=== PATIENT | female | born 1975 | race Caucasian/White ===

== ENCOUNTER 2017-11-20 07:12 | Emergency (ER) | payer MEDICAID ==
[~2017-11-20] VITALS: Ht 162.6 cm; Wt 93.2 kg
[~2017-11-20 07:12] MED LIST: ALBU8.5H4 INH; BUPR-94 PO; CEPH500C5 PO; DESV100T PO; HYDR-3972 PO; IBUP-1984 PO; METH-603 PO; OMEP20CA10 PO; OXYB10TA PO; POLY119P2 PO; PROP10TA10 PO; SENN8.6C6 PO; SUMA100T PO; TIZA4CAP PO; TOPI200T16 PO; TRAZ-219 PO
[2017-11-20] MEDS ORDERED: ibuprofen tablet 400 MG TABLET PO ONE (08:05)
[2017-11-20] MEDS ORDERED: acetaminophen 325mg tablet PO ONE (08:05)
[2017-11-20 08:18] LABS: URINE HCG NEGATIVE (NEG)
[2017-11-20 08:22] LABS: CLARITY,URINE SLIGHTLY CLOUDY (Clear); COLOR,URINE YELLOW (Yellow); GLUCOSE, URINE NEGATIVE (Neg); KETONES,URINE NEGATIVE (Neg); LEUKOCYTE ESTERASE ,URINE TRACE (Neg); NITRITES, URINE NEGATIVE (Neg); OCCULT BLOOD,URINE SMALL (Neg); PROTEIN,URINE NEGATIVE (Neg); UROBILINOGEN,URINE 0.2 E.U/dL (0.2-1.0)
[2017-11-20 08:23] LABS: UA COLLECTION TYPE CLN CATCH MIDSTREAM
[2017-11-20 08:42] LABS: RBC,URINE 0-2 /HPF (0-2)
[2017-11-20 08:43] LABS: BACTERIA,URINE FEW /HPF (Neg); MUCUS STRANDS FEW /LPF (Neg); SQUAMOUS EPITHELIAL CELL,UR FEW /LPF (FEW)
[2017-11-20] MEDS ORDERED: ondansetron 4mg rapidly disintigrating tab PO ONE (08:45)
[2017-11-20] MEDS ORDERED: triamcinolone acetonide 40mg/ml inj IM ONE (09:00)
[2017-11-20 09:20] VITALS: BP 100/66
== END 2017-11-20 09:33 | disposition home or self-care (01) ==
LOC: ER 07:12
DX: M54.5 Low back pain (principal); R11.0 Nausea; K21.9 Gastro-esophageal reflux disease without esophagitis; G89.29 Other chronic pain; F32.9 Major depressive disorder, single episode, unspecified; Z88.2 Allergy status to sulfonamides; Z87.442 Personal history of urinary calculi; Z87.440 Personal history of urinary (tract) infections; Z90.49 Acquired absence of other specified parts of digestive tract; Z90.710 Acquired absence of both cervix and uterus; Z98.51 Tubal ligation status; Z79.899 Other long term (current) drug therapy; Z88.5 Allergy status to narcotic agent; Z88.0 Allergy status to penicillin; Z88.8 Allergy status to other drugs, medicaments and biological substances; Z88.6 Allergy status to analgesic agent
CPT/HCPCS: 81001; 81025; 87088; 96372; 99284; J3301

== ENCOUNTER 2017-12-03 12:55 | Emergency (ER) | payer MEDICAID ==
[~2017-12-03] VITALS: Ht 162.6 cm; Wt 93.8 kg
[2017-12-03 13:36] LABS: BASOPHILS % (AUTO) 0.5 % (0-1); EOSINOPHILS # (AUTO) 0.3 X10'3 (0-0.9); EOSINOPHILS % (AUTO) 3.7 % (0-6); HEMATOCRIT 37.4 % (35.0-45.0); HEMOGLOBIN 12.6 g/dl (12.0-16.0); LYMPHOCYTES # (AUTO) 2.5 X10'3 (1.1-4.8); LYMPHOCYTES % (AUTO) 28.5 % (21-51); MEAN CORPUSCULAR HEMOGLOBIN 29.5 PG (27.0-31.0); MEAN CORPUSCULAR HGB CONC 33.5 % (33.0-36.5); MEAN CORPUSCULAR VOLUME 87.9 FL (78-98); MEAN PLATELET VOLUME 8.8 FL (7.4-10.4); MONOCYTES # (AUTO) 0.5 X10'3 (0-0.9); MONOCYTES % (AUTO) 6.1 % (2-12); NEUTROPHILS # (AUTO) 5.3 X10'3 (1.8-7.7); NEUTROPHILS % (AUTO) 61.2 % (42-75); PLATELET COUNT 298 X10'3 (140-440); RED BLOOD COUNT 4.25 X10'6 (4.20-5.60); RED CELL DISTRIBUTION WIDTH 13.9 % (11.5-14.5); WHITE BLOOD COUNT 8.7 X10'3 (4.5-11.0)
[2017-12-03 13:52] LABS: ALANINE AMINOTRANSFERASE 28 U/L (12-78); ALBUMIN 3.6 G/DL (3.4-5.0); ALBUMIN/GLOBULIN RATIO 0.8 (1.1-1.5); ALKALINE PHOSPHATASE 117 IU/L (46-116); ANION GAP 11 (8-16); ASPARTATE AMINO TRANSFERASE 13 U/L (10-37); BILIRUBIN,TOTAL 0.2 MG/DL (0.1-1.0); BLOOD UREA NITROGEN 10 MG/DL (7-18); CALCIUM 9.9 MG/DL (8.5-10.1); CHLORIDE 103 MMOL/L (99-107); CREATININE 0.83 MG/DL (0.40-0.90); GLUCOSE 104 MG/DL (70-104); POTASSIUM 3.5 MMOL/L (3.5-5.1); SODIUM 140 MMOL/L (135-145); TOTAL CARBON DIOXIDE 25.7 MMOL/L (24-32); eGFR 75 ML/MIN
[2017-12-03] MEDS ORDERED: ondansetron/PF 4mg/2ml inj IV ONE (14:05)
[2017-12-03] MEDS ORDERED: morphine 4 MG/ML inj SYRINge IV PRN (14:05)
[2017-12-03] MEDS ORDERED: normal saline 1000ML IV soln IVB ONE (14:05)
[2017-12-03] MEDS ORDERED: HYDR-569 PO (15:15)
[2017-12-03] MEDS ORDERED: FLO0.4C PO (15:15)
[2017-12-03] MEDS ORDERED: ONDA4TAB9 SL (15:15)
[2017-12-03] MEDS ORDERED: tamsulosin 0.4mg capsule PO ONE (15:15)
[2017-12-03 15:21] VITALS: BP 103/58
== END 2017-12-03 15:26 | disposition home or self-care (01) ==
LOC: ER 12:56
DX: N20.0 Calculus of kidney (principal); N23 Unspecified renal colic; R10.32 Left lower quadrant pain; K21.9 Gastro-esophageal reflux disease without esophagitis; G89.29 Other chronic pain; Z87.442 Personal history of urinary calculi; Z90.49 Acquired absence of other specified parts of digestive tract; Z90.710 Acquired absence of both cervix and uterus; Z98.51 Tubal ligation status; Z88.6 Allergy status to analgesic agent; Z88.0 Allergy status to penicillin; Z88.2 Allergy status to sulfonamides; Z88.5 Allergy status to narcotic agent; Z79.899 Other long term (current) drug therapy
CPT/HCPCS: 36415; 76775; 80053; 85025; 96374; 96375; 99285; J2270; J2405; J7030

== ENCOUNTER 2018-01-26 13:01 | Emergency (ER) | payer MEDICAID ==
[~2018-01-26] VITALS: Ht 162.6 cm; Wt 77.3 kg
[~2018-01-26 13:01] MED LIST changes: -CEPH500C5 PO; +HYDR-4383 PO
[2018-01-26 13:36] LABS: BASOPHILS % (AUTO) 0.2 % (0-1); EOSINOPHILS # (AUTO) 0.3 X10'3 (0-0.9); EOSINOPHILS % (AUTO) 2.7 % (0-6); HEMATOCRIT 36.8 % (35.0-45.0); HEMOGLOBIN 12.2 g/dl (12.0-16.0); LYMPHOCYTES # (AUTO) 2.2 X10'3 (1.1-4.8); MEAN CORPUSCULAR HEMOGLOBIN 29.4 PG (27.0-31.0); MEAN CORPUSCULAR HGB CONC 33.2 % (33.0-36.5); MEAN CORPUSCULAR VOLUME 88.4 FL (78-98); MEAN PLATELET VOLUME 8.4 FL (7.4-10.4); MONOCYTES # (AUTO) 0.7 X10'3 (0-0.9); NEUTROPHILS # (AUTO) 9.1 X10'3 (1.8-7.7); NEUTROPHILS % (AUTO) 73.1 % (42-75); PLATELET COUNT 302 X10'3 (140-440); RED BLOOD COUNT 4.16 X10'6 (4.20-5.60); RED CELL DISTRIBUTION WIDTH 13.7 % (11.5-14.5); WHITE BLOOD COUNT 12.4 X10'3 (4.5-11.0)
[2018-01-26 13:46] LABS: PROTHROMBIN TIME 10.5 SECONDS (9.0-12.0)
[2018-01-26 13:49] LABS: ALANINE AMINOTRANSFERASE 95 U/L (12-78); ALBUMIN 3.3 G/DL (3.4-5.0); ALBUMIN/GLOBULIN RATIO 0.7 (1.1-1.5); ALKALINE PHOSPHATASE 147 IU/L (46-116); ANION GAP 10 (8-16); ASPARTATE AMINO TRANSFERASE 67 U/L (10-37); BILIRUBIN,TOTAL 0.4 MG/DL (0.1-1.0); BLOOD UREA NITROGEN 11 MG/DL (7-18); BUN/CREATININE RATIO 16.4 (6.6-38.0); CALCIUM 8.6 MG/DL (8.5-10.1); CHLORIDE 103 MMOL/L (99-107); CREATININE 0.67 MG/DL (0.40-0.90); GLUCOSE 93 MG/DL (70-104); LIPASE 69 U/L (73-393); POTASSIUM 3.1 MMOL/L (3.5-5.1); SODIUM 137 MMOL/L (135-145); TOTAL CARBON DIOXIDE 24.5 MMOL/L (24-32); TOTAL PROTEIN 8.2 G/DL (6.4-8.2); eGFR > 90 ML/MIN
[2018-01-26] MEDS ORDERED: dicyclomine 10 MG capsule PO ONE (15:00)
[2018-01-26] MEDS ORDERED: METR500T PO (15:06)
[2018-01-26 15:37] VITALS: BP 110/74
== END 2018-01-26 15:41 | disposition home or self-care (01) ==
LOC: ER 13:04
DX: K52.9 Noninfective gastroenteritis and colitis, unspecified (principal); K21.9 Gastro-esophageal reflux disease without esophagitis; G89.29 Other chronic pain; M54.9 Dorsalgia, unspecified; Z90.49 Acquired absence of other specified parts of digestive tract; Z90.710 Acquired absence of both cervix and uterus; Z98.51 Tubal ligation status; Z88.6 Allergy status to analgesic agent; Z88.0 Allergy status to penicillin; Z88.2 Allergy status to sulfonamides; Z88.8 Allergy status to other drugs, medicaments and biological substances
CPT/HCPCS: 36415; 74176; 80053; 83690; 85025; 85610; 99285

== ENCOUNTER 2018-01-28 07:52 | Emergency (ER) | payer MEDICAID ==
[~2018-01-28] VITALS: Ht 162.6 cm; Wt 65.0 kg
[~2018-01-28 07:52] MED LIST changes: +METR500T PO
[2018-01-28 08:53] LABS: BASOPHILS % (AUTO) 0.3 % (0-1); EOSINOPHILS # (AUTO) 0.3 X10'3 (0-0.9); EOSINOPHILS % (AUTO) 2.6 % (0-6); HEMATOCRIT 36.5 % (35.0-45.0); LYMPHOCYTES % (AUTO) 8.6 % (21-51); MEAN CORPUSCULAR VOLUME 87.8 FL (78-98); MEAN PLATELET VOLUME 9.1 FL (7.4-10.4); MONOCYTES # (AUTO) 0.6 X10'3 (0-0.9); MONOCYTES % (AUTO) 4.7 % (2-12); NEUTROPHILS # (AUTO) 9.9 X10'3 (1.8-7.7); NEUTROPHILS % (AUTO) 83.8 % (42-75); PLATELET COUNT 289 X10'3 (140-440); RED BLOOD COUNT 4.15 X10'6 (4.20-5.60); RED CELL DISTRIBUTION WIDTH 13.9 % (11.5-14.5); WHITE BLOOD COUNT 11.9 X10'3 (4.5-11.0)
[2018-01-28 09:05] LABS: PROTHROMBIN TIME 10.2 SECONDS (9.0-12.0)
[2018-01-28 09:06] LABS: ALANINE AMINOTRANSFERASE 62 U/L (12-78); ALBUMIN 3.1 G/DL (3.4-5.0); ALBUMIN/GLOBULIN RATIO 0.6 (1.1-1.5); ALKALINE PHOSPHATASE 132 IU/L (46-116); ANION GAP 9 (8-16); ASPARTATE AMINO TRANSFERASE 32 U/L (10-37); BILIRUBIN,TOTAL 0.3 MG/DL (0.1-1.0); BLOOD UREA NITROGEN 14 MG/DL (7-18); BUN/CREATININE RATIO 19.2 (6.6-38.0); CALCIUM 9.3 MG/DL (8.5-10.1); CHLORIDE 107 MMOL/L (99-107); CREATININE 0.73 MG/DL (0.40-0.90); GLUCOSE 143 MG/DL (70-104); LIPASE 85 U/L (73-393); POTASSIUM 3.4 MMOL/L (3.5-5.1); SODIUM 139 MMOL/L (135-145); TOTAL CARBON DIOXIDE 23.4 MMOL/L (24-32); TOTAL PROTEIN 7.9 G/DL (6.4-8.2); eGFR 87 ML/MIN
[2018-01-28] MEDS ORDERED: ondansetron/PF 4mg/2ml inj IV ONE (09:15)
[2018-01-28] MEDS ORDERED: morphine 4 MG/ML inj SYRINge IV ONE (09:15)
[2018-01-28] MEDS ORDERED: CIPR-259 PO (10:14)
[2018-01-28 10:33] LABS: CLARITY,URINE CLOUDY (Clear); COLOR,URINE YELLOW (Yellow); GLUCOSE, URINE NEGATIVE (Neg); KETONES,URINE NEGATIVE (Neg); LEUKOCYTE ESTERASE ,URINE NEGATIVE (Neg); NITRITES, URINE NEGATIVE (Neg); OCCULT BLOOD,URINE TRACE-INTACT (Neg); PH,URINE 7.5 (4.8-8.0); PROTEIN,URINE NEGATIVE (Neg); UROBILINOGEN,URINE 0.2 E.U/dL (0.2-1.0)
[2018-01-28 10:34] LABS: UA COLLECTION TYPE CLN CATCH MIDSTREAM
[2018-01-28 10:41] LABS: AMORPHOUS PHOSPHATES 3+; BACTERIA,URINE NONE SEEN /HPF (Neg); SQUAMOUS EPITHELIAL CELL,UR FEW /LPF (FEW); WBC,URINE 0-4 /HPF (0-4)
[2018-01-28 11:10] VITALS: BP 114/88
[2018-01-28 11:27] LABS: URINE HCG NEGATIVE (NEG)
== END 2018-01-28 11:20 | disposition home or self-care (01) ==
LOC: ER 07:52
DX: K52.9 Noninfective gastroenteritis and colitis, unspecified (principal); K21.9 Gastro-esophageal reflux disease without esophagitis; G89.29 Other chronic pain; Z90.49 Acquired absence of other specified parts of digestive tract; Z90.710 Acquired absence of both cervix and uterus; Z88.6 Allergy status to analgesic agent; Z88.0 Allergy status to penicillin; Z88.5 Allergy status to narcotic agent; Z88.2 Allergy status to sulfonamides; Z88.8 Allergy status to other drugs, medicaments and biological substances; Z79.2 Long term (current) use of antibiotics; Z79.899 Other long term (current) drug therapy
CPT/HCPCS: 36415; 80053; 81001; 81025; 83690; 85025; 85610; 96374; 96375; 99284; J2270; J2405

== ENCOUNTER 2018-06-22 13:51 | Emergency (ER) | payer MEDICAID ==
[~2018-06-22] VITALS: Ht 160 cm; Wt 84.1 kg
[~2018-06-22 13:51] MED LIST changes: +ARIP2TAB37 PO; -HYDR-3972 PO; -HYDR-4383 PO; +LEVO75TA7 PO; +LINE600T32 PO; -METR500T PO
[2018-06-22 13:56] VITALS: BP 120/74
[2018-06-22] MEDS ORDERED: orphenadrine citrate 60mg/2ml inj. IM ONE (14:30)
[2018-06-22] MEDS ORDERED: aspirin 325mg tablet PO ONE (14:30)
[2018-06-22] MEDS ORDERED: acetaminophen 325mg tablet PO ONE (14:30)
[2018-06-22] MEDS ORDERED: famotidine 20mg tablet PO ONE (14:30)
[2018-06-22] MEDS ORDERED: pantoprazole 40mg Tablet.DR PO ONE (14:35)
[2018-06-22] MEDS ORDERED: LIDOcaine 5% patch TP ONE (14:35)
[2018-06-22 14:45] LABS: CLARITY,URINE CLEAR (Clear); COLOR,URINE YELLOW (Yellow); GLUCOSE, URINE NEGATIVE (Neg); KETONES,URINE NEGATIVE (Neg); LEUKOCYTE ESTERASE ,URINE TRACE (Neg); NITRITES, URINE NEGATIVE (Neg); OCCULT BLOOD,URINE MODERATE (Neg); PROTEIN,URINE NEGATIVE (Neg)
[2018-06-22] MEDS ORDERED: cyclobenzaprine 10mg tablet PO ONE (14:45)
[2018-06-22 14:46] LABS: UA COLLECTION TYPE CLN CATCH MIDSTREAM
[2018-06-22 14:53] LABS: MUCUS STRANDS MODERATE /LPF (Neg); SQUAMOUS EPITHELIAL CELL,UR MODERATE /LPF (FEW)
[2018-06-22 14:54] LABS: RBC,URINE 20-50 /HPF (0-2)
[2018-06-22 14:55] LABS: BACTERIA,URINE NONE SEEN /HPF (Neg)
--- NOTE | 2018-06-22 15:42 | NUR ---
PT TO CT
[2018-06-22 15:51] LABS: CLARITY,URINE SLIGHTLY CLOUDY (Clear); COLOR,URINE YELLOW (Yellow); GLUCOSE, URINE NEGATIVE (Neg); KETONES,URINE NEGATIVE (Neg); LEUKOCYTE ESTERASE ,URINE NEGATIVE (Neg); NITRITES, URINE NEGATIVE (Neg); OCCULT BLOOD,URINE MODERATE (Neg); PROTEIN,URINE NEGATIVE (Neg); UA COLLECTION TYPE STRAIGHT CATH
[2018-06-22 15:59] LABS: MUCUS STRANDS MANY /LPF (Neg); SQUAMOUS EPITHELIAL CELL,UR MANY /LPF (FEW)
[2018-06-22 16:00] LABS: TRANSITIONAL EPI CELLS,URINE FEW /HPF
[2018-06-22 16:01] LABS: BACTERIA,URINE NONE SEEN /HPF (Neg)
[2018-06-22] MEDS ORDERED: PANT20TA3 PO (16:05)
[2018-06-22] MEDS ORDERED: ACET-2615 PO (16:05)
[2018-06-22] MEDS ORDERED: NITR100C6 PO (16:05)
[2018-06-22] MEDS ORDERED: LIDO700A32 TOP (16:05)
[2018-06-22] MEDS ORDERED: CYCL-1 PO (16:05)
== END 2018-06-22 16:17 | disposition home or self-care (01) ==
LOC: ER 13:51
DX: M54.5 Low back pain (principal); K21.9 Gastro-esophageal reflux disease without esophagitis; G89.29 Other chronic pain; Z90.49 Acquired absence of other specified parts of digestive tract; Z90.710 Acquired absence of both cervix and uterus; Z98.51 Tubal ligation status; Z88.0 Allergy status to penicillin; Z88.2 Allergy status to sulfonamides; Z88.6 Allergy status to analgesic agent; Z88.5 Allergy status to narcotic agent; Z88.8 Allergy status to other drugs, medicaments and biological substances; Z79.899 Other long term (current) drug therapy
CPT/HCPCS: 71045; 74176; 81001; 87088; 99284

== ENCOUNTER 2019-07-17 12:54 | Emergency (ER) | payer MEDICAID ==
[~2019-07-17] VITALS: Ht 162.6 cm; Wt 79.0 kg
[~2019-07-17 12:54] MED LIST changes: +CYCL-1 PO; +LIDO700A32 TOP; +LINE600T14 PO; -LINE600T32 PO; +NITR100C6 PO; -OMEP20CA10 PO; +OMEP20CA15 PO; +ONDA4TAB6 PO; -OXYB10TA PO; +OXYB10TA30 PO; +PANT20TA3 PO; -TRAZ-219 PO; +TRAZ-256 PO
[2019-07-17 12:58] VITALS: BP 150/81
--- NOTE | 2019-07-17 13:14 | NUR ---
PT HAS BEEN EVALUATED BY DR TAVARES
[2019-07-17] MEDS ORDERED: acetaminophen 325mg tablet PO ONE (13:15)
== END 2019-07-17 14:08 | disposition home or self-care (01) ==
LOC: ER 12:55
DX: J06.9 Acute upper respiratory infection, unspecified (principal); Z20.828 Contact with and (suspected) exposure to other viral communicable diseases; K21.9 Gastro-esophageal reflux disease without esophagitis; G89.29 Other chronic pain; F32.9 Major depressive disorder, single episode, unspecified; Z90.89 Acquired absence of other organs; Z90.49 Acquired absence of other specified parts of digestive tract; Z90.710 Acquired absence of both cervix and uterus; Z98.890 Other specified postprocedural states; Z72.89 Other problems related to lifestyle; Z88.0 Allergy status to penicillin; Z88.2 Allergy status to sulfonamides; Z88.5 Allergy status to narcotic agent; Z88.8 Allergy status to other drugs, medicaments and biological substances; Z79.899 Other long term (current) drug therapy
CPT/HCPCS: 36415; 71045; 99284; C9803; U0003; 99283

== ENCOUNTER 2019-09-03 09:04 | Day surgery (SDC) | payer MEDICAID ==
[2019-08-31 14:41] LABS: BASOPHILS # (AUTO) 0.1 X10'3 (0-0.2); BASOPHILS % (AUTO) 0.9 % (0-1); EOSINOPHILS # (AUTO) 0.2 X10'3 (0-0.9); LYMPHOCYTES # (AUTO) 2.1 X10'3 (1.1-4.8); LYMPHOCYTES % (AUTO) 31.4 % (21-51); MEAN CORPUSCULAR HEMOGLOBIN 28.3 PG (27.0-31.0); MEAN CORPUSCULAR HGB CONC 32.6 g/dL (33.0-36.5); MEAN CORPUSCULAR VOLUME 86.9 FL (78-98); MONOCYTES # (AUTO) 0.6 X10'3 (0-0.9); MONOCYTES % (AUTO) 8.9 % (2-12); NEUTROPHILS # (AUTO) 3.7 X10'3 (1.8-7.7); NEUTROPHILS % (AUTO) 55.8 % (42-75); PRE OP HEMATOCRIT 35.9 % (35.0-45.0); PRE OP HEMOGLOBIN 11.7 g/dL (12.0-16.0); PRE OP PLATELET COUNT 272 X10'3 (140-440); RED BLOOD COUNT 4.13 X10'6 (4.20-5.60); RED CELL DISTRIBUTION WIDTH 15.2 % (11.5-14.5)
[2019-08-31 14:53] LABS: CLARITY,URINE CLEAR (Clear); COLOR,URINE YELLOW (Yellow); GLUCOSE, URINE NEGATIVE (Neg); KETONES,URINE NEGATIVE (Neg); LEUKOCYTE ESTERASE ,URINE NEGATIVE (Neg); NITRITES, URINE NEGATIVE (Neg); OCCULT BLOOD,URINE SMALL (Neg); PH,URINE 6.5 (4.8-8.0); PROTEIN,URINE NEGATIVE (Neg); UROBILINOGEN,URINE 0.2 E.U/dL (0.2-1.0)
[2019-08-31 14:55] LABS: UA COLLECTION TYPE CLN CATCH MIDSTREAM
[2019-08-31 14:56] LABS: ALBUMIN 3.3 G/DL (3.4-5.0); ALBUMIN/GLOBULIN RATIO 0.7 (1.1-1.5); ALKALINE PHOSPHATASE 144 IU/L (46-116); BLOOD UREA NITROGEN 7 MG/DL (7-18); BUN/CREATININE RATIO 7.4 (6.6-38.0); CALCIUM 8.6 MG/DL (8.5-10.1); CHLORIDE 105 MMOL/L (99-107); CREATININE 0.95 MG/DL (0.40-0.90); PRE OP ALT 54 U/L (30-65); PRE OP ANION GAP 8 (8-16); PRE OP AST 31 U/L (10-37); PRE OP BILIRUB, TOTAL 0.2 MG/DL (0.0-1.0); PRE OP GLUCOSE 90 MG/DL (70-104); PRE OP POTASSIUM 3.5 MMOL/L (3.4-5.1); PRE OP SODIUM 140 MMOL/L (135-145); TOTAL CARBON DIOXIDE 26.7 MMOL/L (24-32); eGFR 63 ML/MIN
[2019-08-31 15:00] LABS: RBC,URINE 0-2 /HPF (0-2); WBC,URINE 0-4 /HPF (0-4)
[2019-08-31 15:01] LABS: BACTERIA,URINE FEW /HPF (Neg); SQUAMOUS EPITHELIAL CELL,UR FEW /LPF (FEW)
[2019-09-03] VITALS (9 sets, daily range): BP systolic 116–141; BP diastolic 69–82
[~2019-09-03] VITALS: Ht 162.6 cm; Wt 101.0 kg
[~2019-09-03 09:04] MED LIST changes: -CYCL-1 PO; +DOCUMENT DATE & TIME OF BETA-BLOCKER PO ONE; -IBUP-1984 PO; -LIDO700A32 TOP; -LINE600T14 PO; +METO-395 PO; -NITR100C6 PO; -ONDA4TAB6 PO; -PANT20TA3 PO; -PROP10TA10 PO; -SENN8.6C6 PO; +[UNRECOGNIZED DRUG - OTHER] PO; +cefazolin/dext.iso 2gm/50ml 50 ML IV ONE; +famotidine 20mg tablet PO ONE; +ringers solution, lacted 1,000 ML IV SCH
[2019-09-03] MEDS ORDERED: BUPIVAcaine/PF 2.5 mg/ml (0.25%) 30ml vial ONE (10:27)
[2019-09-03] MEDS ORDERED: bacitracin 15gm ointment TP ONE ×2 (10:27→13:54)
[2019-09-03] MEDS ORDERED: ringers solution, lacted 1,000 ML IV SCH (10:32)
[2019-09-03] MEDS ORDERED: fentaNYL/PF 50MCG/1 ML 2ML syringe IV PRN (10:35)
[2019-09-03] MEDS ORDERED: ondansetron/PF 4mg/2ml inj IV PRN (10:35)
[2019-09-03] MEDS ORDERED: HYDROmorphone inj. 0.5 MG/0.5 ML DISP.SYRIN IV PRN ×2 (10:35)
[2019-09-03] MEDS ORDERED: acetaminophen 1,000mg/100ml IV 100 ML IV PRN (10:35)
[2019-09-03] MEDS ORDERED: meperidine/PF 25mg/ml syringe IV PRN (10:35)
[2019-09-03] MEDS ORDERED: sevoflurane 250ml liquid IH ONE (10:38)
[2019-09-03] MEDS ORDERED: fentaNYL/PF 50MCG/1 ML 2ML syringe ONE (10:38)
[2019-09-03] MEDS ORDERED: propofol 10mg/ml 20ml vial IV ONE (10:38)
[2019-09-03] MEDS ORDERED: ondansetron/PF 4mg/2ml inj ONE (10:38)
[2019-09-03] MEDS ORDERED: dexamethasone sod phosphate 10mg/ml inj ONE (10:38)
[2019-09-03] MEDS ORDERED: propofol inj 20 ML IV ONE (11:34)
[2019-09-03] MEDS ORDERED: LIDOcaine 2% (20mg/ml) 5ml vial ONE (11:34)
[2019-09-03] MEDS ORDERED: midazolam 2 mg/2 ml injection ONE (11:34)
[2019-09-03] MEDS ORDERED: BUPIVAcaine/PF 2.5 mg/ml (0.25%) 30ml vial IJ ONE (11:43)
--- NOTE | 2019-09-03 12:37 | NUR ---
Received from OR via [facility], accompanied by Anesthesiologist DR gross and report given by Anesthesiolgist. PATIENT able to open eyes but not responding to any questions. DENIES PAIN, V/S WNL, NEUROVASCULAR CHECKS INTACT, 20G PIV right AC, DRESSING TO RIGHT foot/ankle with immobilizing boot on. CDI ELEVATED WITH ICEBAG APPLIED.
[2019-09-03] MEDS: fentaNYL/PF 50MCG/1 ML 2ML syringe IV PRN ×2 (13:14→13:50)
--- NOTE | 2019-09-03 14:17 | NUR ---
Pt discharged to vehicle after IV dc'd and foot immobilizer placed on foot. Pump for boot received by patient and she states she already knows how to use it. Pt and mother verbalized understanding of all DC instructions. Follow up appt to be made. All belongings received. Toes remain pink, and good cap refill, slightly numb but pain tolerable at 3/10. 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
== END 2019-09-03 14:17 | disposition home or self-care (01) ==
LOC: PAS 09:04
PROVIDERS: ATTEND Podiatrist Foot & Ankle Surgery
DX: M20.11 Hallux valgus (acquired), right foot (principal); M20.21 Hallux rigidus, right foot; G47.33 Obstructive sleep apnea (adult) (pediatric); J45.909 Unspecified asthma, uncomplicated; I10 Essential (primary) hypertension; K21.9 Gastro-esophageal reflux disease without esophagitis; G43.909 Migraine, unspecified, not intractable, without status migrainosus; F32.9 Major depressive disorder, single episode, unspecified; M19.90 Unspecified osteoarthritis, unspecified site; E66.9 Obesity, unspecified; Z68.38 Body mass index [BMI] 38.0-38.9, adult; Z98.51 Tubal ligation status; Z90.710 Acquired absence of both cervix and uterus; Z90.49 Acquired absence of other specified parts of digestive tract; Z98.890 Other specified postprocedural states; Z87.442 Personal history of urinary calculi; Z87.01 Personal history of pneumonia (recurrent); Z88.5 Allergy status to narcotic agent; Z88.2 Allergy status to sulfonamides; Z88.8 Allergy status to other drugs, medicaments and biological substances; Z86.14 Personal history of Methicillin resistant Staphylococcus aureus infection; Z79.899 Other long term (current) drug therapy; Z11.59 Encounter for screening for other viral diseases
CPT/HCPCS: 28750; 36415; 73620; 76000; 80053; 81001; 82948; 85025; A6223; C1713; J0131; J1100; J2001; J2250; J2405; J2704; J3010; J3490; U0003; A4215; A4618; A6253; A6446; A6449; J7120

== ENCOUNTER 2020-05-26 11:37 | Emergency (ER) | payer MEDICAID ==
[~2020-05-26] VITALS: Ht 162.6 cm; Wt 93.0 kg
[~2020-05-26 11:37] MED LIST changes: -DOCUMENT DATE & TIME OF BETA-BLOCKER PO ONE; -cefazolin/dext.iso 2gm/50ml 50 ML IV ONE; -famotidine 20mg tablet PO ONE; -ringers solution, lacted 1,000 ML IV SCH
[2020-05-26 12:02] VITALS: BP 124/70
[2020-05-26] MEDS ORDERED: CLIN150C8 PO (12:20)
[2020-05-26] MEDS ORDERED: CEPH250T PO (12:20)
== END 2020-05-26 12:48 | disposition home or self-care (01) ==
LOC: ER 11:38
DX: L03.115 Cellulitis of right lower limb (principal); K21.9 Gastro-esophageal reflux disease without esophagitis; G89.29 Other chronic pain; F32.9 Major depressive disorder, single episode, unspecified; Z87.442 Personal history of urinary calculi; Z87.440 Personal history of urinary (tract) infections; Z90.49 Acquired absence of other specified parts of digestive tract; Z90.710 Acquired absence of both cervix and uterus; Z98.51 Tubal ligation status; Z98.890 Other specified postprocedural states; Z72.89 Other problems related to lifestyle; Z88.8 Allergy status to other drugs, medicaments and biological substances; Z88.0 Allergy status to penicillin; Z88.2 Allergy status to sulfonamides; Z88.5 Allergy status to narcotic agent; Z79.2 Long term (current) use of antibiotics; Z79.899 Other long term (current) drug therapy
CPT/HCPCS: 99283

== ENCOUNTER 2020-06-24 09:12 | Emergency (ER) | payer MEDICAID ==
[~2020-06-24] VITALS: Ht 162.6 cm; Wt 104.5 kg
[~2020-06-24 09:12] MED LIST changes: +CLIN150C8 PO
[2020-06-24 09:14] VITALS: BP 150/92
[2020-06-24] MEDS ORDERED: DOXYCYCLINE 100MG CAPSULE PO STA (09:51)
[2020-06-24] MEDS ORDERED: CEPH-585 PO (09:54)
[2020-06-24] MEDS ORDERED: DOXY100C43 PO (09:54)
[2020-06-24] MEDS ORDERED: cephalexin 250mg capsule PO ONE (09:55)
== END 2020-06-24 10:15 | disposition home or self-care (01) ==
LOC: ER 09:12
DX: L03.116 Cellulitis of left lower limb (principal); K21.9 Gastro-esophageal reflux disease without esophagitis; G89.29 Other chronic pain; F32.9 Major depressive disorder, single episode, unspecified; Z87.442 Personal history of urinary calculi; Z87.440 Personal history of urinary (tract) infections; Z90.49 Acquired absence of other specified parts of digestive tract; Z90.710 Acquired absence of both cervix and uterus; Z98.51 Tubal ligation status; Z98.890 Other specified postprocedural states; Z72.89 Other problems related to lifestyle; Z88.0 Allergy status to penicillin; Z88.8 Allergy status to other drugs, medicaments and biological substances; Z88.5 Allergy status to narcotic agent; Z88.2 Allergy status to sulfonamides; Z79.2 Long term (current) use of antibiotics; Z79.899 Other long term (current) drug therapy
CPT/HCPCS: 99283

== ENCOUNTER 2020-07-01 19:09 | Emergency (ER) | payer MEDICAID ==
[~2020-07-01] VITALS: Ht 162.6 cm; Wt 100.5 kg
[~2020-07-01 19:09] MED LIST changes: +CEPH-585 PO; +DOXY100C43 PO
[2020-07-01 20:31] LABS: BASOPHILS % (AUTO) 0.5 % (0-1); EOSINOPHILS # (AUTO) 0.3 X10'3 (0-0.9); EOSINOPHILS % (AUTO) 3.9 % (0-6); HEMATOCRIT 32.1 % (35.0-45.0); HEMOGLOBIN 10.2 g/dl (12.0-16.0); LYMPHOCYTES # (AUTO) 1.7 X10'3 (1.1-4.8); LYMPHOCYTES % (AUTO) 22.7 % (21-51); MEAN CORPUSCULAR HGB CONC 31.9 g/dL (33.0-36.5); MEAN CORPUSCULAR VOLUME 84.6 FL (78-98); MEAN PLATELET VOLUME 8.6 FL (7.4-10.4); MONOCYTES # (AUTO) 0.6 X10'3 (0-0.9); MONOCYTES % (AUTO) 7.8 % (2-12); NEUTROPHILS # (AUTO) 4.8 X10'3 (1.8-7.7); NEUTROPHILS % (AUTO) 65.1 % (42-75); PLATELET COUNT 296 X10'3 (140-440); RED BLOOD COUNT 3.79 X10'6 (4.20-5.60); RED CELL DISTRIBUTION WIDTH 15.1 % (11.5-14.5); WHITE BLOOD COUNT 7.4 X10'3 (4.5-11.0)
[2020-07-01 20:42] LABS: ALANINE AMINOTRANSFERASE 37 U/L (12-78); ALBUMIN 2.9 G/DL (3.4-5.0); ALBUMIN/GLOBULIN RATIO 0.6 (1.1-1.5); ALKALINE PHOSPHATASE 133 IU/L (46-116); ANION GAP 10 (8-16); ASPARTATE AMINO TRANSFERASE 24 U/L (10-37); BILIRUBIN,TOTAL 0.2 MG/DL (0.1-1.0); BLOOD UREA NITROGEN 21 MG/DL (7-18); BUN/CREATININE RATIO 26.9 (6.6-38.0); CALCIUM 8.8 MG/DL (8.5-10.1); CHLORIDE 104 MMOL/L (99-107); CREATININE 0.78 MG/DL (0.40-0.90); GLUCOSE 105 MG/DL (70-104); POTASSIUM 4.3 MMOL/L (3.5-5.1); SODIUM 140 MMOL/L (135-145); TOTAL CARBON DIOXIDE 26.2 MMOL/L (24-32); TOTAL PROTEIN 7.8 G/DL (6.4-8.2); eGFR 79 ML/MIN
[2020-07-01] MEDS ORDERED: DOXY-1 PO (21:16)
[2020-07-01] MEDS ORDERED: CEPH250T PO (21:16)
[2020-07-01 21:28] VITALS: BP 102/64
== END 2020-07-01 21:30 | disposition home or self-care (01) ==
LOC: ER 19:10
DX: I87.2 Venous insufficiency (chronic) (peripheral) (principal); I87.8 Other specified disorders of veins; K21.9 Gastro-esophageal reflux disease without esophagitis; G89.29 Other chronic pain; Z87.442 Personal history of urinary calculi; Z87.440 Personal history of urinary (tract) infections; Z90.49 Acquired absence of other specified parts of digestive tract; Z90.710 Acquired absence of both cervix and uterus; Z98.51 Tubal ligation status; Z72.89 Other problems related to lifestyle; Z79.2 Long term (current) use of antibiotics; Z79.899 Other long term (current) drug therapy; Z88.6 Allergy status to analgesic agent; Z88.2 Allergy status to sulfonamides; Z88.0 Allergy status to penicillin; Z88.8 Allergy status to other drugs, medicaments and biological substances
CPT/HCPCS: 36415; 80053; 83880; 85025; 99283

== ENCOUNTER 2020-11-02 17:55 | Emergency (ER) | payer MEDICAID ==
[~2020-11-02] VITALS: Ht 162.6 cm; Wt 100.0 kg
[~2020-11-02 17:55] MED LIST changes: -DOXY100C43 PO
[2020-11-02 18:30] VITALS: BP 120/72
[2020-11-02 19:15] LABS: URINE HCG NEGATIVE (NEG)
[2020-11-02 19:41] LABS: CLARITY,URINE SLIGHTLY CLOUDY (Clear); COLOR,URINE YELLOW (Yellow); GLUCOSE, URINE NEGATIVE (Neg); KETONES,URINE NEGATIVE (Neg); LEUKOCYTE ESTERASE ,URINE NEGATIVE (Neg); NITRITES, URINE NEGATIVE (Neg); OCCULT BLOOD,URINE LARGE (Neg); PROTEIN,URINE NEGATIVE (Neg); UROBILINOGEN,URINE 0.2 E.U/dL (0.2-1.0)
[2020-11-02 19:52] LABS: UA COLLECTION TYPE CLN CATCH MIDSTREAM
[2020-11-02 19:55] LABS: BACTERIA,URINE NONE SEEN /HPF (Neg); RBC,URINE 20-50 /HPF (0-2); WBC,URINE NONE SEEN /HPF (0-4)
[2020-11-02 19:56] LABS: CAL OXALATE CRYSTALS 1+ /HPF (NEGATIVE); SQUAMOUS EPITHELIAL CELL,UR FEW /LPF (FEW)
[2020-11-04] MEDS ORDERED: CEPH-585 PO (14:54)
== END 2020-11-03 03:12 | disposition left against medical advice (07) ==
LOC: ER 17:56
DX: M54.5 Low back pain (principal); Z53.21 Procedure and treatment not carried out due to patient leaving prior to being seen by health care provider
CPT/HCPCS: 81001; 81025

== ENCOUNTER 2020-11-04 11:25 | Emergency (ER) | payer MEDICAID ==
[~2020-11-04] VITALS: Ht 162.6 cm; Wt 95.5 kg
[2020-11-04 12:21] LABS: CLARITY,URINE SLIGHTLY CLOUDY (Clear); COLOR,URINE YELLOW (Yellow); GLUCOSE, URINE NEGATIVE (Neg); KETONES,URINE NEGATIVE (Neg); LEUKOCYTE ESTERASE ,URINE TRACE (Neg); NITRITES, URINE NEGATIVE (Neg); OCCULT BLOOD,URINE SMALL (Neg); PROTEIN,URINE NEGATIVE (Neg); URINE HCG NEGATIVE (NEG); UROBILINOGEN,URINE 0.2 E.U/dL (0.2-1.0)
[2020-11-04 12:22] LABS: UA COLLECTION TYPE CLN CATCH MIDSTREAM
[2020-11-04 12:27] LABS: AMORPHOUS URATES 3+; BACTERIA,URINE FEW /HPF (Neg); MUCUS STRANDS NONE SEEN /LPF (Neg); SQUAMOUS EPITHELIAL CELL,UR NONE SEEN /LPF (FEW)
[2020-11-04 12:38] LABS: BASOPHILS % (AUTO) 0.7 % (0-1); EOSINOPHILS # (AUTO) 0.1 X10'3 (0-0.9); EOSINOPHILS % (AUTO) 2.6 % (0-6); HEMATOCRIT 35.8 % (35.0-45.0); HEMOGLOBIN 11.7 g/dl (12.0-16.0); LYMPHOCYTES # (AUTO) 1.4 X10'3 (1.1-4.8); LYMPHOCYTES % (AUTO) 26.2 % (21-51); MEAN CORPUSCULAR HEMOGLOBIN 27.1 PG (27.0-31.0); MEAN CORPUSCULAR HGB CONC 32.6 g/dL (33.0-36.5); MEAN PLATELET VOLUME 8.8 FL (7.4-10.4); MONOCYTES # (AUTO) 0.4 X10'3 (0-0.9); MONOCYTES % (AUTO) 7.1 % (2-12); NEUTROPHILS # (AUTO) 3.4 X10'3 (1.8-7.7); NEUTROPHILS % (AUTO) 63.4 % (42-75); PLATELET COUNT 249 X10'3 (140-440); RED BLOOD COUNT 4.32 X10'6 (4.20-5.60); RED CELL DISTRIBUTION WIDTH 16.8 % (11.5-14.5); WHITE BLOOD COUNT 5.4 X10'3 (4.5-11.0)
[2020-11-04 12:58] LABS: ALANINE AMINOTRANSFERASE 34 U/L (12-78); ALBUMIN 3.3 G/DL (3.4-5.0); ALBUMIN/GLOBULIN RATIO 0.7 (1.1-1.5); ALKALINE PHOSPHATASE 105 IU/L (46-116); ANION GAP 8 (8-16); ASPARTATE AMINO TRANSFERASE 24 U/L (10-37); BILIRUBIN,TOTAL 0.2 MG/DL (0.1-1.0); BLOOD UREA NITROGEN 8 MG/DL (7-18); BUN/CREATININE RATIO 9.6 (6.6-38.0); CALCIUM 8.5 MG/DL (8.5-10.1); CHLORIDE 108 MMOL/L (99-107); CREATININE 0.83 MG/DL (0.40-0.90); GLUCOSE 82 MG/DL (70-104); LIPASE 51 U/L (73-393); POTASSIUM 3.2 MMOL/L (3.5-5.1); SODIUM 144 MMOL/L (135-145); TOTAL CARBON DIOXIDE 27.9 MMOL/L (24-32); TOTAL PROTEIN 8.3 G/DL (6.4-8.2); eGFR 74 ML/MIN
[2020-11-04] MEDS ORDERED: ondansetron/PF 4mg/2ml inj IV ONE (13:20)
[2020-11-04] MEDS ORDERED: normal saline 1000ML IV soln IVB ONE (13:20)
--- NOTE | 2020-11-04 14:03 | NUR ---
PT IN CT
[2020-11-04] MEDS ORDERED: CEPH-585 PO (14:54)
[2020-11-04 16:15] VITALS: BP 95/52
== END 2020-11-04 16:06 | disposition home or self-care (01) ==
LOC: ER 11:26
DX: N39.0 Urinary tract infection, site not specified (principal); G89.29 Other chronic pain; M54.5 Low back pain
CPT/HCPCS: 36415; 71045; 74176; 80053; 81001; 81025; 83690; 83880; 84484; 85025; 87088; 93005; 96361; 96374; 99285; J2405; J7030

== ENCOUNTER 2020-11-13 18:03 | Emergency (ER) | payer MEDICAID ==
[~2020-11-13] VITALS: Ht 162.6 cm; Wt 100.0 kg
--- NOTE | 2020-11-13 19:10 | NUR ---
PA AT BEDSIDE
[2020-11-13] MEDS ORDERED: HYDROcodone/acetaminophen 5mg/325mg tablet PO ONE (19:15)
[2020-11-13] MEDS ORDERED: naproxen 500mg tablet PO ONE (19:25)
[2020-11-13] MEDS ORDERED: DOXY100T56 PO (19:37)
[2020-11-13 19:54] LABS: BASOPHILS # (AUTO) 0.2 X10'3 (0-0.2); BASOPHILS % (AUTO) 1.8 % (0-1); EOSINOPHILS # (AUTO) 0.1 X10'3 (0-0.9); EOSINOPHILS % (AUTO) 1.5 % (0-6); HEMATOCRIT 34.8 % (35.0-45.0); HEMOGLOBIN 11.3 g/dl (12.0-16.0); LYMPHOCYTES # (AUTO) 0.9 X10'3 (1.1-4.8); LYMPHOCYTES % (AUTO) 9.6 % (21-51); MEAN CORPUSCULAR HEMOGLOBIN 27.1 PG (27.0-31.0); MEAN CORPUSCULAR HGB CONC 32.6 g/dL (33.0-36.5); MEAN PLATELET VOLUME 8.6 FL (7.4-10.4); MONOCYTES # (AUTO) 0.9 X10'3 (0-0.9); NEUTROPHILS # (AUTO) 7.4 X10'3 (1.8-7.7); NEUTROPHILS % (AUTO) 78.1 % (42-75); PLATELET COUNT 247 X10'3 (140-440); RED BLOOD COUNT 4.19 X10'6 (4.20-5.60); RED CELL DISTRIBUTION WIDTH 16.9 % (11.5-14.5); WHITE BLOOD COUNT 9.5 X10'3 (4.5-11.0)
[2020-11-13 20:13] LABS: ALANINE AMINOTRANSFERASE 26 U/L (12-78); ALBUMIN 3.2 G/DL (3.4-5.0); ALBUMIN/GLOBULIN RATIO 0.7 (1.1-1.5); ALKALINE PHOSPHATASE 122 IU/L (46-116); ANION GAP 9 (8-16); ASPARTATE AMINO TRANSFERASE 23 U/L (10-37); BILIRUBIN,TOTAL 0.3 MG/DL (0.1-1.0); BLOOD UREA NITROGEN 16 MG/DL (7-18); BUN/CREATININE RATIO 20.8 (6.6-38.0); CALCIUM 8.3 MG/DL (8.5-10.1); CHLORIDE 107 MMOL/L (99-107); CREATININE 0.77 MG/DL (0.40-0.90); GLUCOSE 90 MG/DL (70-104); POTASSIUM 3.2 MMOL/L (3.5-5.1); SODIUM 141 MMOL/L (135-145); TOTAL CARBON DIOXIDE 25.5 MMOL/L (24-32); eGFR 80 ML/MIN
[2020-11-13] MEDS ORDERED: potassium Cl 20 mEq SR tablet PO ONE (20:25)
[2020-11-13 20:42] VITALS: BP 122/76
== END 2020-11-13 20:43 | disposition home or self-care (01) ==
LOC: ER 18:04
DX: I87.8 Other specified disorders of veins (principal); L30.9 Dermatitis, unspecified; L03.115 Cellulitis of right lower limb; L03.116 Cellulitis of left lower limb; Z87.442 Personal history of urinary calculi; F32.9 Major depressive disorder, single episode, unspecified; K21.9 Gastro-esophageal reflux disease without esophagitis; Z88.6 Allergy status to analgesic agent; Z88.0 Allergy status to penicillin; Z88.2 Allergy status to sulfonamides; Z79.899 Other long term (current) drug therapy
CPT/HCPCS: 36415; 80053; 85025; 99284

== ENCOUNTER 2020-12-04 21:19 | Emergency (ER) | payer MEDICAID ==
[~2020-12-04] VITALS: Ht 162.6 cm; Wt 93.2 kg
[2020-12-04 22:27] LABS: BASOPHILS % (AUTO) 0.5 % (0-1); EOSINOPHILS # (AUTO) 0.1 X10'3 (0-0.9); EOSINOPHILS % (AUTO) 0.7 % (0-6); HEMATOCRIT 37.9 % (35.0-45.0); HEMOGLOBIN 12.4 g/dl (12.0-16.0); LYMPHOCYTES # (AUTO) 1.3 X10'3 (1.1-4.8); LYMPHOCYTES % (AUTO) 13.2 % (21-51); MEAN CORPUSCULAR HEMOGLOBIN 27.2 PG (27.0-31.0); MEAN CORPUSCULAR HGB CONC 32.8 g/dL (33.0-36.5); MEAN CORPUSCULAR VOLUME 82.8 FL (78-98); MEAN PLATELET VOLUME 9.2 FL (7.4-10.4); MONOCYTES # (AUTO) 0.6 X10'3 (0-0.9); MONOCYTES % (AUTO) 5.7 % (2-12); NEUTROPHILS # (AUTO) 8.1 X10'3 (1.8-7.7); NEUTROPHILS % (AUTO) 79.9 % (42-75); PLATELET COUNT 280 X10'3 (140-440); RED BLOOD COUNT 4.58 X10'6 (4.20-5.60); RED CELL DISTRIBUTION WIDTH 16.1 % (11.5-14.5); WHITE BLOOD COUNT 10.2 X10'3 (4.5-11.0)
[2020-12-04 22:36] LABS: ALANINE AMINOTRANSFERASE 22 U/L (12-78); ALBUMIN 3.6 G/DL (3.4-5.0); ALBUMIN/GLOBULIN RATIO 0.8 (1.1-1.5); ALKALINE PHOSPHATASE 122 IU/L (46-116); ANION GAP 12 (8-16); ASPARTATE AMINO TRANSFERASE 14 U/L (10-37); BILIRUBIN,TOTAL 0.4 MG/DL (0.1-1.0); BLOOD UREA NITROGEN 16 MG/DL (7-18); BUN/CREATININE RATIO 15.2 (6.6-38.0); CALCIUM 9.1 MG/DL (8.5-10.1); CHLORIDE 106 MMOL/L (99-107); CREATININE 1.05 MG/DL (0.40-0.90); GLUCOSE 155 MG/DL (70-104); LIPASE < 50 U/L (73-393); SODIUM 141 MMOL/L (135-145); TOTAL CARBON DIOXIDE 22.8 MMOL/L (24-32); TOTAL PROTEIN 8.3 G/DL (6.4-8.2); eGFR 56 ML/MIN
[2020-12-04 22:43] LABS: POTASSIUM 2.9 MMOL/L (3.5-5.1)
[2020-12-05 05:03] LABS: MAGNESIUM 2.1 MG/DL (1.5-2.4)
[2020-12-05 05:06] LABS: ETHANOL < 0.010 GM/DL (0.0-0.010)
[2020-12-05] MEDS ORDERED: potassium Cl 20 mEq SR tablet PO STA (07:57)
[2020-12-05 08:49] LABS: URINE HCG NEGATIVE (NEG)
[2020-12-05 08:56] LABS: URINE AMPHETAMINE SCREEN POSITIVE (Neg); URINE BARBITUATE SCREEN NEGATIVE (Neg); URINE BENZODIAZEPINES SCREEN NEGATIVE (Neg); URINE CANNABINOID SCREEN NEGATIVE (Neg); URINE COCAINE SCREEN NEGATIVE (Neg); URINE METHADONE SCREEN NEGATIVE (Neg); URINE OPIATE SCREEN NEGATIVE (Neg); URINE PHENCYCLIDINE SCREEN NEGATIVE (Neg)
[2020-12-05 09:07] LABS: CLARITY,URINE CLOUDY (Clear); GLUCOSE, URINE NEGATIVE (Neg); KETONES,URINE NEGATIVE (Neg); LEUKOCYTE ESTERASE ,URINE TRACE (Neg); NITRITES, URINE NEGATIVE (Neg); OCCULT BLOOD,URINE LARGE (Neg); PH,URINE 7.5 (4.8-8.0); PROTEIN,URINE 30 mg/dl (Neg); UROBILINOGEN,URINE 0.2 E.U/dL (0.2-1.0)
[2020-12-05 09:15] LABS: COLOR,URINE Amber (Yellow); UA COLLECTION TYPE CLN CATCH MIDSTREAM
[2020-12-05] MEDS ORDERED: CEFD300C3 PO (09:17)
[2020-12-05 09:33] VITALS: BP 117/75
[2020-12-05 09:47] LABS: WBC,URINE 0-4 /HPF (0-4)
[2020-12-05 09:48] LABS: BACTERIA,URINE FEW /HPF (Neg); RBC,URINE TNTC /HPF (0-2)
[2020-12-05 09:49] LABS: MUCUS STRANDS FEW /LPF (Neg); SQUAMOUS EPITHELIAL CELL,UR FEW /LPF (FEW)
[2020-12-05 09:50] LABS: AMORPHOUS PHOSPHATES 1+
== END 2020-12-05 09:35 | disposition home or self-care (01) ==
LOC: ER 21:20
DX: N39.0 Urinary tract infection, site not specified (principal); E87.6 Hypokalemia; N17.9 Acute kidney failure, unspecified; R10.84 Generalized abdominal pain; R11.10 Vomiting, unspecified; R30.0 Dysuria; R31.9 Hematuria, unspecified; K21.9 Gastro-esophageal reflux disease without esophagitis; G89.29 Other chronic pain; F32.9 Major depressive disorder, single episode, unspecified; Z87.442 Personal history of urinary calculi; Z87.440 Personal history of urinary (tract) infections; Z90.49 Acquired absence of other specified parts of digestive tract; Z90.710 Acquired absence of both cervix and uterus; Z98.51 Tubal ligation status; Z98.890 Other specified postprocedural states; Z72.89 Other problems related to lifestyle; Z88.0 Allergy status to penicillin; Z88.2 Allergy status to sulfonamides; Z88.5 Allergy status to narcotic agent; Z88.8 Allergy status to other drugs, medicaments and biological substances; Z79.2 Long term (current) use of antibiotics; Z79.899 Other long term (current) drug therapy
CPT/HCPCS: 36415; 74176; 80053; 80305; 80320; 81001; 81025; 83690; 83735; 85025; 87088; 99284

== ENCOUNTER 2022-03-09 13:33 | Emergency (ER) | payer MEDICAID ==
[~2022-03-09] VITALS: Ht 167.6 cm; Wt 95.0 kg
[~2022-03-09 13:33] MED LIST changes: -CEPH-585 PO
--- NOTE | 2022-03-09 16:13 | NUR ---
CHARGE NURSE ANTOINE RICHEY NOTIFIED OF GENERAL ASSESSMENT FOR REVIEW.
[2022-03-09] MEDS ORDERED: ondansetron/PF 4mg/2ml inj IV ONE (16:45)
[2022-03-09] MEDS ORDERED: normal saline 1000ML IV soln IVB ONE (16:45)
[2022-03-09 17:15] LABS: CLARITY,URINE CLEAR (Clear); COLOR,URINE YELLOW (Yellow); GLUCOSE, URINE NEGATIVE (Neg); KETONES,URINE NEGATIVE (Neg); LEUKOCYTE ESTERASE ,URINE NEGATIVE (Neg); NITRITES, URINE NEGATIVE (Neg); OCCULT BLOOD,URINE TRACE-INTACT (Neg); PROTEIN,URINE NEGATIVE (Neg)
[2022-03-09 17:18] LABS: UA COLLECTION TYPE CLN CATCH MIDSTREAM
[2022-03-09 17:19] LABS: BACTERIA,URINE NONE SEEN /HPF (Neg); MUCUS STRANDS FEW /LPF (Neg); RBC,URINE 0-2 /HPF (0-2); SQUAMOUS EPITHELIAL CELL,UR FEW /LPF (FEW); WBC,URINE 0-4 /HPF (0-4)
[2022-03-09] MEDS ORDERED: acetaminophen 325mg tablet PO ONE (17:55)
[2022-03-09 18:18] LABS: BASOPHILS % (AUTO) 0.1 % (0-1); EOSINOPHILS % (AUTO) 0.1 % (0-6); HEMATOCRIT 37.4 % (35.0-45.0); HEMOGLOBIN 12.3 g/dl (12.0-16.0); LYMPHOCYTES # (AUTO) 2.3 X10'3 (1.1-4.8); LYMPHOCYTES % (AUTO) 11.7 % (21-51); MEAN CORPUSCULAR HEMOGLOBIN 28.3 PG (27.0-31.0); MEAN CORPUSCULAR HGB CONC 32.9 g/dL (33.0-36.5); MEAN CORPUSCULAR VOLUME 86.2 FL (78-98); MEAN PLATELET VOLUME 9.7 FL (7.4-10.4); MONOCYTES # (AUTO) 0.9 X10'3 (0-0.9); MONOCYTES % (AUTO) 4.4 % (2-12); NEUTROPHILS # (AUTO) 16.4 X10'3 (1.8-7.7); NEUTROPHILS % (AUTO) 83.7 % (42-75); PLATELET COUNT 198 X10'3 (140-440); RED BLOOD COUNT 4.34 X10'6 (4.20-5.60); RED CELL DISTRIBUTION WIDTH 15.1 % (11.5-14.5); WHITE BLOOD COUNT 19.6 X10'3 (4.5-11.0)
[2022-03-09 18:23] LABS: ALANINE AMINOTRANSFERASE 25 U/L (12-78); ALBUMIN 3.3 G/DL (3.4-5.0); ALBUMIN/GLOBULIN RATIO 0.8 (1.1-1.5); ALKALINE PHOSPHATASE 83 IU/L (46-116); ANION GAP 8 (8-16); ASPARTATE AMINO TRANSFERASE 25 U/L (10-37); BILIRUBIN,TOTAL 0.5 MG/DL (0.1-1.0); BLOOD UREA NITROGEN 21 MG/DL (7-18); CALCIUM 8.2 MG/DL (8.5-10.1); CHLORIDE 101 MMOL/L (99-107); CREATININE 1.05 MG/DL (0.40-0.90); GLUCOSE 93 MG/DL (70-104); SODIUM 136 MMOL/L (135-145); TOTAL CARBON DIOXIDE 27.1 MMOL/L (24-32); TOTAL PROTEIN 7.5 G/DL (6.4-8.2); eGFR 56 ML/MIN
[2022-03-09 18:29] LABS: POTASSIUM 2.8 MMOL/L (3.5-5.1)
[2022-03-09] MEDS ORDERED: potassium Cl 20 mEq SR tablet PO ONE (18:40)
[2022-03-09] MEDS ORDERED: magnesium 2GM in 50ml NS 50 ML IV ONE (18:40)
[2022-03-09] MEDS ORDERED: potassium Cl 10 mEq/100mL bag IV ONE (18:40)
--- NOTE | 2022-03-09 18:53 | NUR ---
PT TO CT
[2022-03-09 19:13] LABS: MAGNESIUM 1.8 MG/DL (1.5-2.4)
[2022-03-09] MEDS ORDERED: ACET-2119 PO (19:28)
[2022-03-09] MEDS ORDERED: ONDA4TAB12 PO (19:28)
--- NOTE | 2022-03-09 19:49 | NUR ---
PT TOLERATED PO CHALLEGE OF CRACKERS AND WATER.
[2022-03-09 20:21] VITALS: BP 105/64
== END 2022-03-09 20:25 | disposition home or self-care (01) ==
LOC: ER 13:33
DX: N20.0 Calculus of kidney (principal); Z20.822 Contact with and (suspected) exposure to COVID-19; E87.6 Hypokalemia; D72.829 Elevated white blood cell count, unspecified; K21.9 Gastro-esophageal reflux disease without esophagitis; G89.29 Other chronic pain; F32.9 Major depressive disorder, single episode, unspecified; Z90.49 Acquired absence of other specified parts of digestive tract; Z90.710 Acquired absence of both cervix and uterus; Z98.51 Tubal ligation status; Z59.00 Homelessness unspecified; Z72.89 Other problems related to lifestyle; Z88.0 Allergy status to penicillin; Z88.8 Allergy status to other drugs, medicaments and biological substances; Z88.2 Allergy status to sulfonamides; Z88.5 Allergy status to narcotic agent; Z79.899 Other long term (current) drug therapy
CPT/HCPCS: 36415; 74176; 80053; 81001; 83735; 85025; 87502; 87503; 87635; 96361; 96365; 96368; 96375; 99285; C9803; J2405; J3475; J3480; J7030

== ENCOUNTER 2022-10-14 20:45 | Emergency (ER) | payer MEDICAID ==
[~2022-10-14] VITALS: Ht 162.6 cm; Wt 93.2 kg
[~2022-10-14 20:45] MED LIST changes: +CLIN-214 PO; -CLIN150C8 PO; +ONDA4TAB12 PO
[2022-10-14 21:00] VITALS: BP 139/63
[2022-10-14 22:13] LABS: CLARITY,URINE SLIGHTLY CLOUDY (Clear); GLUCOSE, URINE NEGATIVE (Neg); KETONES,URINE NEGATIVE (Neg); LEUKOCYTE ESTERASE ,URINE NEGATIVE (Neg); NITRITES, URINE NEGATIVE (Neg); OCCULT BLOOD,URINE TRACE-INTACT (Neg); PH,URINE 5.5 (4.8-8.0); PROTEIN,URINE NEGATIVE (Neg); UROBILINOGEN,URINE 0.2 E.U/dL (0.2-1.0)
[2022-10-14 22:42] LABS: UA COLLECTION TYPE CLN CATCH MIDSTREAM
[2022-10-14 22:43] LABS: COLOR,URINE DARK YELLOW (Yellow)
[2022-10-14 22:44] LABS: BACTERIA,URINE 1+ /HPF (Neg); MUCUS STRANDS FEW /LPF (Neg); SQUAMOUS EPITHELIAL CELL,UR FEW /LPF (FEW)
[2022-10-14 22:45] LABS: HYALINE CASTS 0-3 /LPF (NEGATIVE)
[2022-10-14 23:03] LABS: BASOPHILS % (AUTO) 0.3 % (0-1); EOSINOPHILS # (AUTO) 0.2 X10'3 (0-0.9); EOSINOPHILS % (AUTO) 1.6 % (0-6); HEMATOCRIT 38.9 % (35.0-45.0); LYMPHOCYTES # (AUTO) 2.2 X10'3 (1.1-4.8); LYMPHOCYTES % (AUTO) 16.3 % (21-51); MEAN CORPUSCULAR HGB CONC 33.3 g/dL (33.0-36.5); MEAN CORPUSCULAR VOLUME 87.2 FL (78-98); MEAN PLATELET VOLUME 8.8 FL (7.4-10.4); MONOCYTES # (AUTO) 1.2 X10'3 (0-0.9); NEUTROPHILS # (AUTO) 9.6 X10'3 (1.8-7.7); NEUTROPHILS % (AUTO) 72.8 % (42-75); PLATELET COUNT 253 X10'3 (140-440); RED BLOOD COUNT 4.46 X10'6 (4.20-5.60); RED CELL DISTRIBUTION WIDTH 14.3 % (11.5-14.5); WHITE BLOOD COUNT 13.2 X10'3 (4.5-11.0)
[2022-10-14 23:16] LABS: ALANINE AMINOTRANSFERASE 49 U/L (12-78); ALBUMIN 3.8 G/DL (3.4-5.0); ALBUMIN/GLOBULIN RATIO 0.8 (1.1-1.5); ALKALINE PHOSPHATASE 122 IU/L (46-116); ANION GAP 10 (8-16); ASPARTATE AMINO TRANSFERASE 36 U/L (10-37); BILIRUBIN,TOTAL 0.3 MG/DL (0.1-1.0); BLOOD UREA NITROGEN 17 MG/DL (7-18); CALCIUM 9.1 MG/DL (8.5-10.1); CHLORIDE 102 MMOL/L (99-107); GLUCOSE 100 MG/DL (70-104); POTASSIUM 3.3 MMOL/L (3.5-5.1); SODIUM 136 MMOL/L (135-145); TOTAL CARBON DIOXIDE 24.2 MMOL/L (24-32); TOTAL PROTEIN 8.5 G/DL (6.4-8.2)
[2022-10-14 23:44] LABS: BUN/CREATININE RATIO 19.5 (10.0-20.0); CREATININE 0.87 MG/DL (0.40-0.90); eGFR 69 ML/MIN
[2022-10-15] MEDS ORDERED: DOXYCYCLINE 100MG CAPSULE PO STA (00:19)
[2022-10-15] MEDS ORDERED: acetaminophen 325mg tablet PO ONE (00:20)
[2022-10-15] MEDS ORDERED: potassium Cl 20 mEq SR tablet PO ONE (00:20)
[2022-10-15] MEDS ORDERED: cephalexin 500mg capsule PO ONE (00:20)
[2022-10-15] MEDS ORDERED: DOXY-1 PO (00:24)
[2022-10-15] MEDS ORDERED: CEPH-585 PO (00:24)
== END 2022-10-15 00:46 | disposition home or self-care (01) ==
LOC: ER 20:46
DX: L03.115 Cellulitis of right lower limb (principal); E87.6 Hypokalemia; M25.571 Pain in right ankle and joints of right foot; K21.9 Gastro-esophageal reflux disease without esophagitis; Z87.442 Personal history of urinary calculi; Z88.0 Allergy status to penicillin; Z88.2 Allergy status to sulfonamides; Z88.6 Allergy status to analgesic agent; Z79.2 Long term (current) use of antibiotics; Z79.899 Other long term (current) drug therapy; Z90.49 Acquired absence of other specified parts of digestive tract; Z90.710 Acquired absence of both cervix and uterus; Z98.51 Tubal ligation status; Z59.00 Homelessness unspecified
CPT/HCPCS: 36415; 80053; 81001; 83880; 85025; 87088; 99284

== ENCOUNTER 2023-06-28 10:00 | Emergency (ER) | payer MEDICAID ==
[~2023-06-28] VITALS: Ht 162.6 cm; Wt 98.3 kg
[2023-06-28 10:03] VITALS: TEMP 98.3
[2023-06-28 11:34] LABS: BASOPHILS % (AUTO) 0.5 % (0-1); EOSINOPHILS # (AUTO) 0.2 X10'3 (0-0.9); EOSINOPHILS % (AUTO) 1.9 % (0-6); HEMATOCRIT 31.9 % (35.0-45.0); HEMOGLOBIN 10.9 g/dl (12.0-16.0); LYMPHOCYTES # (AUTO) 1.3 X10'3 (1.1-4.8); LYMPHOCYTES % (AUTO) 14.7 % (21-51); MEAN CORPUSCULAR HEMOGLOBIN 28.6 PG (27.0-31.0); MEAN CORPUSCULAR HGB CONC 34.1 g/dL (33.0-36.5); MEAN PLATELET VOLUME 8.6 FL (7.4-10.4); MONOCYTES # (AUTO) 0.6 X10'3 (0-0.9); NEUTROPHILS # (AUTO) 6.5 X10'3 (1.8-7.7); NEUTROPHILS % (AUTO) 75.9 % (42-75); PLATELET COUNT 284 X10'3 (140-440); RED CELL DISTRIBUTION WIDTH 14.4 % (11.5-14.5); WHITE BLOOD COUNT 8.6 X10'3 (4.5-11.0)
[2023-06-28 11:44] LABS: ALBUMIN 2.8 G/DL (3.4-5.0); ANION GAP 8 (8-16); BLOOD UREA NITROGEN 16 MG/DL (7-18); BUN/CREATININE RATIO 19.8 (10.0-20.0); CALCIUM 8.5 MG/DL (8.5-10.1); CHLORIDE 106 MMOL/L (99-107); CREATININE 0.81 MG/DL (0.40-0.90); GLUCOSE 121 MG/DL (70-104); POTASSIUM 3.3 MMOL/L (3.5-5.1); SODIUM 139 MMOL/L (135-145); TOTAL CARBON DIOXIDE 24.6 MMOL/L (24-32); eCRCL 72 ML/MIN; eGFR 75 ML/MIN
[2023-06-28 13:10] VITALS: BP 107/61; PULSE 65; RESP 16; O2SAT 96
[2023-06-28] MEDS ORDERED: GABA-530 PO (14:01)
[2023-06-28] MEDS ORDERED: POTA-192 PO (14:01)
[2023-06-28] MEDS ORDERED: FURO-150 PO (14:01)
== END 2023-06-28 14:24 | disposition home or self-care (01) ==
LOC: ER 10:01
DX: L03.116 Cellulitis of left lower limb (principal); L03.115 Cellulitis of right lower limb; R60.0 Localized edema; G62.9 Polyneuropathy, unspecified; K21.9 Gastro-esophageal reflux disease without esophagitis; Z88.0 Allergy status to penicillin; Z88.6 Allergy status to analgesic agent; Z88.2 Allergy status to sulfonamides; Z79.899 Other long term (current) drug therapy; Z90.710 Acquired absence of both cervix and uterus; Z90.49 Acquired absence of other specified parts of digestive tract; Z98.51 Tubal ligation status
CPT/HCPCS: 36415; 80048; 85025; 93925; 93970; 99284

== ENCOUNTER 2024-12-20 08:03 | Outpatient (CLI) | payer MEDICAID ==
[~2024-12-20 08:03] MED LIST changes: +GABA-530 PO; +ONDA-243 PO; -ONDA4TAB12 PO; -TOPI200T16 PO; +TOPI200T68 PO
--- NOTE | 2024-12-20 10:22 | RADIOLOGY REPORT ---
EXAM: DI FOOT, COMPLETE (3VW MIN) CLINICAL INDICATION: RIGHT FOOT PAIN AND REDNESS, R/O OSTEOMYELITIS TECHNIQUE: DI FOOT, COMPLETE (3VW MIN) Comparison: None FINDINGS/IMPRESSION: THERE ARE MULTIPLE CORTICAL IRREGULARITIES INVOLVING DIGITS 2 THROUGH 5, CORRELATE WITH SURGICAL HISTORY. POSTSURGICAL CHANGES INVOLVING THE 1ST DIGIT. OSTEOMYELITIS CAN NOT BE EXCLUDED. DIFFUSE SOFT TISSUE SWELLING. MRI EXAMINATION.
--- NOTE | 2024-12-20 12:00 | VASCULAR REPORT ---
Bilateral lower extremity venous duplex Clinical History: pain Comparison: VASC VL ARTERIAL on DOS: 06/28/23, VASC VL VENOUS on DOS: 06/28/23 Findings: Duplex Doppler evaluation of the deep venous systems of both lower extremities from the common femoral veins to the popliteal veins including color Doppler and spectral/pulsed waveform analysis was performed. [employer] Lower extremity pain/swelling R>L Risk Factors s/p recent right foot/ankle surgery a few months ago Past History Prior Lower Extremity Venous DuplexDate : 06/28/2023 Vein Imaging (Right) CFV (R): Compressible, Spontaneous, Respirophasic, Augmentation Reflux: ms SFJ (R): Compressible, Spontaneous, Respirophasic, Augmentation Reflux: ms FEM (R): Compressible, Spontaneous, Respirophasic, Augmentation Reflux: ms POP (R): Compressible, Spontaneous, Respirophasic, Augmentation Reflux: ms DFV (R): Compressible, Spontaneous, Respirophasic, Augmentation Reflux: ms PTV (R): Compressible, Spontaneous, Respirophasic, Augmentation Reflux: ms GSV (R): Compressible, Spontaneous, Respirophasic, Augmentation Reflux: ms Peroneals (R): Compressible, Spontaneous, Respirophasic, Augmentation Reflux: ms Vein Imaging (Left) CFV (L): Compressible, Spontaneous, Respirophasic, Augmentation Reflux: ms SFJ (L): Compressible, Spontaneous, Respirophasic, Augmentation Reflux: ms FEM (L): Compressible, Spontaneous, Respirophasic, Augmentation Reflux: ms POP (L): Compressible, Spontaneous, Respirophasic, Augmentation Reflux: ms DFV (L): Compressible, Spontaneous, Respirophasic, Augmentation Reflux: ms PTV (L): Compressible, Spontaneous, Respirophasic, Augmentation Reflux: ms GSV (L): Compressible, Spontaneous, Respirophasic, Augmentation Reflux: ms Peroneals (L): Compressible, Spontaneous, Respirophasic, Augmentation Reflux: ms Doppler Evaluation (Right) CFV (R): Spontaneous, Respirophasic POP (R):Spontaneous, Respirophasic Doppler Evaluation (Left) CFV (L):Spontaneous, Respirophasic POP (L):Spontaneous, Respirophasic CONCLUSION No sonographic evidence of thrombus within the lower extremities bilaterally. All interrogated vessels appear patent and demonstrate spontaneous, respirophasic waveforms.
== END 2024-12-20 23:59 | disposition home or self-care (01) ==
LOC: VAS 08:03
PROVIDERS: ATTEND Student in an Organized Health Care Education/Training Program
DX: R60.0 Localized edema (principal); L03.115 Cellulitis of right lower limb; M86.8X7 Other osteomyelitis, ankle and foot
CPT/HCPCS: 73630; 93970

== ENCOUNTER 2025-01-05 09:08 | Outpatient (CLI) | payer MEDICAID ==
--- NOTE | 2025-01-05 13:51 | RADIOLOGY REPORT ---
PROCEDURE: MR MRI LUMBAR SPINE INDICATION: LOW BACK PAIN 49-year-old female with chronic low back pain. Exam Date: 01/05/2025 09:36 AM COMPARISON: CT scan of the abdomen and pelvis dated 03/09/2022. TECHNIQUE: MRI lumbar spine without intravenous contrast. FINDINGS: No fracture or listhesis of the lumbar spine. The conus terminates at L1-L2. L1-L2: No significant discopathy, spinal canal stenosis, or neural foraminal stenosis bilaterally. There is bilateral facet and ligamentum flavum hypertrophy. L2-L3: There is disc desiccation with slight loss of disc height. There is a circumferential broad disc bulge. There is bilateral facet and ligamentum flavum hypertrophy. No significant spinal canal stenosis. There is mild right and moderate left neural foraminal stenosis. L3-L4: There is disc desiccation with mild loss of disc height. There is a circumferential broad disc bulge, most prominent in the foraminal regions, [id number]. There is bilateral facet hypertrophy. The AP dimension of the spinal canal measures 8.6 mm. There is mild right and moderate left neural foraminal stenosis. L4-L5: There is disc desiccation with mild loss of disc height. There is a circumferential broad disc bulge, most prominent in the right foraminal region. There is bilateral facet hypertrophy. No significant spinal canal stenosis. There is moderate bilateral neural foraminal stenosis. L5-S1: There is disc desiccation with near-complete loss of disc height. Probable vacuum phenomenon in the disc. There is edema of the L5 inferior endplate and sclerosis of the bilateral endplates. There is a circumferential broad disc bulge with endplate hypertrophy. There is bilateral facet hypertro phy. No significant spinal canal stenosis. There is moderate bilateral neural foraminal stenosis. IMPRESSION: 1. No fracture of the lumbar spine. 2. Degenerative disc disease and facet arthropathy with mild spinal canal stenosis at L3-LNo high-grade spinal canal stenosis at any level in the lumbar spine. 3. Significant neural foraminal stenosis at L2-L3 on the left, L3-L4 on the left, L4-L5 bilaterally, and L5-S1 bilaterally. These findings May correspond to lower extremity radicular symptoms in the left L2, left L3, bilateral L4, and bilateral L5 nerve root distributions.
== END 2025-01-05 23:59 | disposition home or self-care (01) ==
LOC: MRI02 09:08
PROVIDERS: ATTEND Student in an Organized Health Care Education/Training Program
DX: M51.360 Other intervertebral disc degeneration, lumbar region with discogenic back pain only (principal); M47.816 Spondylosis without myelopathy or radiculopathy, lumbar region; M48.07 Spinal stenosis, lumbosacral region
CPT/HCPCS: 72148

== ENCOUNTER 2025-03-27 04:17 | Emergency (ER) | payer MEDICAID ==
[~2025-03-27] VITALS: Ht 165.1 cm; Wt 76.0 kg
[2025-03-27 04:39] VITALS: TEMP 98
[2025-03-27 08:54] LABS: MEAN PLATELET VOLUME 9.5 FL (7.4-10.4); RED CELL DISTRIBUTION WIDTH 18.9 % (11.5-14.5)
--- NOTE | 2025-03-27 08:58 | Physician Documentation ---
History of Present Illness Chief Complaint: Abdominal Pain Stated Complaint: ABD PAIN Time Seen by MD: 08:31 Primary Medical Doctor: Dr. Yen HPI 49-year-old female presenting with left lower quadrant abdominal pain that started about 1:00 a.m. last night. Patient states that the pain is severe, sharp and radiates to her left flank area. She reports that it has been difficult to urinate but denies any blood in her urine or any dysuria. States that the pain has been constant but fluctuating in intensity. Additionally she has been very nauseated but has not vomited. She denies any chest pain, fever, chills, shortness of breath or any other associated symptoms. Medication Reconciliation Allergies: Coded Allergies: Penicillins (Unverified Allergy, Unknown, RASH, 11/04/20) RASH WITH AMOXICILLIN Sulfa (Sulfonamide Antibiotics) (Unverified Allergy, Unknown, 11/04/20) codeine (Unverified Allergy, Unknown, 11/04/20) morphine (Verified Allergy, Unknown, 11/04/20) prochlorperazine (Verified Adverse Reaction, Severe, ANXIETY, 11/04/20) Scheduled Aripiprazole (Abilify), 5 MG PO DAILY, (Reported) Bupropion Hcl (Wellbutrin Xl), 150 MG PO DAILY, (Reported) Clindamycin HCl (Clindamycin HCl CAPSULE), 3 CAP PO TID Desvenlafaxine Succinate (Pristiq ER), 2 TAB PO DAILY, (Reported) Gabapentin (Gabapentin), 2 CAP PO Q8H Levothyroxine Sodium (Levothyroxine Sodium), 88 MG PO DAILY, (Reported) Methadone Hcl* (Dolophine*), 159 MG PO QAM, (Reported) Metoprolol Succinate (Metoprolol Succinate), 1 TAB PO DAILY, (Reported) Omeprazole (Omeprazole), 1 CAP PO BID, (Reported) Oxybutynin Chloride (Ditropan Xl), 1 TABLET PO DAILY, (Reported) Sumatriptan Succinate (Imitrex*), 1 TABLET PO UD, (Reported) Tizanidine Hcl (Zanaflex), 3 CAP PO HS, (Reported) Topiramate (Topiramate), 1 TAB PO HS, (Reported) Trazodone HCl (Trazodone HCl), 2 TAB PO HS, (Reported) [Keto Vitamin], 1 TAB PO DAILY, (Reported) Scheduled PRN Albuterol Sulfate (Albuterol Sulfate Hfa), 2 PUFF INH Q4H PRN for SOB or wheez ing, (Reported) ONDANSETRON ODT 4mg tablet (Ondansetron Odt), 1 TABLET PO Q6H PRN for nausea /vomiting Polyethylene Glycol 3350 (Miralax), 17 GM PO DAILY PRN for CONSTIPATION, (Reported) Past Medical History Past Medical History: GERD, Kidney Stones, UTI, Chronic Back Pain, Cellulitis, Depression Past Surgical History: abdominal surgery, cholecystectomy, hysterectomy, tubal ligation, other Alcohol Use: Occasionally Drug Use: none Lives In: Homeless Occupation: disabled Review of Systems All Other Systems at this time: Reviewed and Negative Physical Exam Vital Signs: Temperature: 98.0, Heart Rate: 57, Respiratory Rate: 20, BP: 161/73, Pulse Oximetry: 98, Weight: 76.000 Oxygen Flow Rate: 0 Physical Exam I have reviewed the triage vitals. CONST: Well developed and well nourished. In moderate distress due to pain HENT: Head Atraumatic EYES: Pupils are equal, round and reactive to light. Normal conjunctiva NECK: Normal range of motion. Supple. CARDIO: Normal rate and regular rhythm. No murmurs, rubs, or gallops. S1, S2. PULM/CHEST: No respiratory distress. Lungs clear to auscultation. No wheeze ABD: Soft , tenderness to palpation over the left lower quadrant, Nondistended. Bowel sounds normal. No guarding, , positive left-sided CVA tenderness : Exam deferred MSK: No edema. No deformity. NEURO: Alert and oriented to person, place and time. Moving all extremities SKIN: Warm and dry. PSYCH: Normal mood and affect. Good eye contact. Progress Results/Orders Reviewed/noted all lab results: Yes Results/Orders Orders - HILARIA BAIRES MD Hs Troponin I W Calculations (03/27/25 08:53) Electrocardiogram (03/27/25 ) Ct Abdomen Pelvis (03/27/25 08:53) Normal Saline 1,000ml Iv Bolus (03/27/25 08:55) Ondansetron Inj. (Zofran 4mg/2ml Vial) (03/27/25 08:55) Hydromorphone 0.5 Mg/0.5 Ml/Pf (Dilaudid (03/27/25 08:55) Vital Signs 03/27/25 04:39 Temp 98.0 Pulse 57 Resp 20 B/P (MAP) 161/73 Pulse Ox 98 O2 Flow Rate 0 Laboratory Tests Test 03/27/25 08:41 CBC Comment Chemistry Comments EKG/XRAY/CT/US/VASC/MRI EKG : Additional Comment EKG as interpreted by ED MD indicating mild sinus bradycardia with a rate of 58 beats per minute, no ischemia, normal axis CT : Impression EXAM: CT CT ABDOMEN PELVIS History: LLQ pain/L flank pain Comparison Study: CT ABDOMEN PELVIS on DOS: 03/09/22, CT ABDOMEN PELVIS on DOS: 12/05/20, CT ABDOMEN PELVIS on DOS: 11/04/20 TECHNIQUE: Multidetector spiral CT of the abdomen and pelvis was performed from lung bases to pubic symphysis. Initial imaging was done without IV contrast, followed by post contrast images of the abdomen and pelvis. Intravenous contrast was administered during this examination. portal venous/arterial/multiphase imaging was obtained. Axial, coronal and sagittal multiplanar reformats were performed by the technologist on a separate workstation. Radiation Dose : CT Dose: CTDI volume is 36 mGy. Dose-length product is 1751 mGy*cm FINDINGS: Lung Bases: No acute or significant lung base finding. Normal heart size. No pleural or pericardial effusion. Liver: The liver is normal in size. No focal lesions. Normal hepatic vascular enhancement. Gallbladder and Biliary Tree: Gallbladder is surgically absent. Spleen: Unremarkable Pancreas: The pancreas is normal in appearance without focal lesions or abnormal enhancement. Adrenal Glands: Unremarkable Kidneys: 5 mm stone in the left UVJ is causing moderate left-sided hydroureteronephrosis. Multiple additional subcentimeter nonobstructing stones are scattered throughout both kidneys. Bladder: Unremarkable Bowel: The stomach is grossly normal in appearance. Small bowel and colon are normal in caliber and distribution. The appendix is not visualized; however, no secondary findings of acute appendicitis identified. Moderate to large colonic stool burden. Ascites: Absent Lymphadenopathy: No mesenteric, retroperitoneal or periportal lymphadenopathy. Abdominal Wall and Mesentery: Unremarkable. Vasculature: The visualized abdominal aorta is normal in size and caliber. Abdominal and pelvic vessels demonstrate normal enhancement. Pelvic Organs: Unremarkable Musculoskeletal: No aggressive focal bony lesions, acute fractures or dislocation. IMPRESSION: 1. 5 mm stone in the left UVJ is causing moderate left-sided hydrouret eronephrosis. 2. Multiple additional subcentimeter nonobstructing stones are scattered throughout both kidneys. Radiation optimization: All CT scans at this facility use at least one of these dose optimization techniques: automated exposure control mA and/or kV adjustment per patient size (includes targeted exams where dose is matched to clinical indication) or iterative reconstruction. A Medical Decision Making Additional information obtaine: old records Findings - Differential Dx:Considerations: Urinary obstruction, Urinary tract infection, Urolithiasis Additional Comments 49-year-old female presenting with left-sided flank pain and abdominal pain secondary to a [address] of the abdomen and pelvis did confirm this at the UVJ. Patient was in severe pain and required initially 1 mg of IV Dilaudid. I also did medicated with 30 mg of IV ketorolac and 1000 mg of IV acetaminophen with good improvement in her pain level. The patient's lab work is grossly unremarkable. No signs of infection on urinalysis. Given the improvement in the patient's symptoms in the workup I believe she is stable and safe for discharge home and treatment as an outpatient. I will go ahead and prescribe her Flomax as well as oral ketorolac and acetaminophen for pain control. I advised the patient to drink plenty of fluids and monitor for passage of the stone. Also advised that she needs to follow up closely with the primary care physician for referral to Urology should she not pass the stone. Strict return precautions to the ED were given should her symptoms worsen. All labs and imaging reviewed by myself. All social determinants of health and chronic medical conditions were considered by myself. Departure Disposition: HOME / SELF CARE / HOMELESS Impression: Primary Impression: Ureteral calculi Condition: Improved Discharge Instructions: Kidney Stones Additional Instructions: Please take the medication as prescribed. Drink plenty of fluids. Monitor for passage of her stone. The pain worsens please return to the ED. Otherwise follow up with your PCP and potentially urology if you do not pass the stone. Referrals: NO PRIMARY CARE PROVIDER (PCP) Prescriptions Acetaminophen (Acetaminophen) 500 Mg Tablet 2 TAB PO Q8H PRN for pain or fever for 15 Days, #120 TAB Prov: HILARIA BAIRES MD 03/27/25 Ketorolac Tromethamine (Ketorolac Tromethamine) 10 Mg Tablet 1 TAB PO Q6H PRN PRN for pain for 5 Days, #20 TAB 0 Refills Prov: HILARIA BAIRES MD 03/27/25 Signature Scribe Signature: 1 Attestation: The note accurately reflects work and decisions made by me.Hilaria Ruff MD 03/27/25 13:23 HILARIA BAIRES MD Mar 27, 2025 08:58
--- NOTE | 2025-03-27 09:03 | ELECTROCARDIOGRAPH REPORT ---
[facility] Test Date: 2025-03-27 Test Time: 09:02:03 Pat Name: KRISTINE VILLALOBOS Department: [facility] Patient ID: [id number] Room: Gender: F Investigator Cash Shortage: : 1975 Requested By: CLAUDE BAIRES Order Number: [id number] Reading MD: Dr. Shamar Miller Measurements Intervals [place] Rate: 58 P: 12 VA: 165 QRS: 66 QRSD: 120 T: 24 QT: 472 QTc: 464 Interpretive Statements Sinus bradycardia Nonspecific intraventricular conduction delay Borderline T abnormalities, anterior leads Electronically Signed On 03-28-2025 11:18:[address] Shamar Miller Please click the below link to view image of tracing.
[2025-03-27 09:10] LABS: CREATININE 1.01 MG/DL (0.40-0.90); TOTAL CARBON DIOXIDE 22.3 MMOL/L (24-32); eCRCL 59 ML/MIN; eGFR 58 ML/MIN
[2025-03-27] MEDS: HYDROmorphone inj. 0.5 MG/0.5 ML DISP.SYRIN IV ONE ×2 (09:25→10:37)
[2025-03-27] MEDS: normal saline 1000ml 1,000 ML IV ONE ×2 (09:27→11:14)
[2025-03-27] MEDS: ondansetron/PF 4mg/2ml inj IV ONE (09:27)
[2025-03-27] MEDS ORDERED: iohexol 300mg/ml 100ml inj. ONE (09:28)
--- NOTE | 2025-03-27 10:14 | RADIOLOGY REPORT ---
EXAM: CT CT ABDOMEN PELVIS History: LLQ pain/L flank pain Comparison Study: CT ABDOMEN PELVIS on DOS: 03/09/22, CT ABDOMEN PELVIS on DOS: 12/05/20, CT ABDOMEN PELVIS on DOS: 11/04/20 TECHNIQUE: Multidetector spiral CT of the abdomen and pelvis was performed from lung bases to pubic symphysis. Initial imaging was done without IV contrast, followed by post contrast images of the abdomen and pelvis. Intravenous contrast was administered during this examination. portal venous/arterial/multiphase imaging was obtained. Axial, coronal and sagittal multiplanar reformats were performed by the technologist on a separate workstation. Radiation Dose : CT Dose: CTDI volume is 36 mGy. Dose-length product is 1751 mGy*cm FINDINGS: Lung Bases: No acute or significant lung base finding. Normal heart size. No pleural or pericardial effusion. Liver: The liver is normal in size. No focal lesions. Normal hepatic vascular enhancement. Gallbladder and Biliary Tree: Gallbladder is surgically absent. Spleen: Unremarkable Pancreas: The pancreas is normal in appearance without focal lesions or abnormal enhancement. Adrenal Glands: Unremarkable Kidneys: 5 mm stone in the left UVJ is causing moderate left-sided hydroureteronephrosis. Multiple additional subcentimeter nonobstructing stones are scattered throughout both kidneys. Bladder: Unremarkable Bowel: The stomach is grossly normal in appearance. Small bowel and colon are normal in caliber and distribution. The appendix is not visualized; however, no secondary findings of acute appendicitis identified. Moderate to large colonic stool burden. Ascites: Absent Lymphadenopathy: No mesenteric, retroperitoneal or periportal lymphadenopathy. Abdominal Wall and Mesentery: Unremarkable. Vasculature: The visualized abdominal aorta is normal in size and caliber. Abdominal and pelvic vessels demonstrate normal enhancement. Pelvic Organs: Unremarkable Musculoskeletal: No aggressive focal bony lesions, acute fractures or dislocation. IMPRESSION: 1. 5 mm stone in the left UVJ is causing moderate left-sided hydroureteronephrosis. 2. Multiple additional subcentimeter nonobstructing stones are scattered throughout both kidneys. Radiation optimization: All CT scans at this facility use at least one of these dose optimization techniques: automated exposure control mA and/or kV adjustment per patient size (includes targeted exams where dose is matched to clinical indication) or iterative reconstruction.
[2025-03-27 11:24] LABS: LEUKOCYTE ESTERASE ,URINE NEGATIVE (Neg); NITRITES, URINE NEGATIVE (Neg); OCCULT BLOOD,URINE TRACE-INTACT (Neg)
[2025-03-27 11:25] LABS: UA COLLECTION TYPE OTHER; URINE HCG NEGATIVE (NEG)
[2025-03-27 11:30] LABS: AMORPHOUS URATES 3+; MUCUS STRANDS NONE SEEN /LPF (Neg); SQUAMOUS EPITHELIAL CELL,UR FEW /LPF (FEW)
[2025-03-27] MEDS: ketorolac trometh 30MG/ML vial 30 MG/ML VIAL IV ONE (12:36)
[2025-03-27] MEDS: acetaminophen 1,000mg/100ml IV 100 ML IV ONE (12:39)
[2025-03-27] MEDS ORDERED: ACET-1017 PO (13:27)
[2025-03-27] MEDS ORDERED: KETO10TA2 PO (13:27)
[2025-03-27 14:12] VITALS: BP 123/67; PULSE 65; RESP 20; O2SAT 97
== END 2025-03-27 14:30 | disposition home or self-care (01) ==
LOC: ER 04:18
DX: N20.1 Calculus of ureter (principal); G89.29 Other chronic pain; F32.A Depression, unspecified; K21.9 Gastro-esophageal reflux disease without esophagitis; Z88.0 Allergy status to penicillin; Z88.2 Allergy status to sulfonamides; Z88.5 Allergy status to narcotic agent; Z88.8 Allergy status to other drugs, medicaments and biological substances; Z90.49 Acquired absence of other specified parts of digestive tract; Z90.710 Acquired absence of both cervix and uterus; Z87.442 Personal history of urinary calculi; Z87.440 Personal history of urinary (tract) infections; Z79.899 Other long term (current) drug therapy; Z59.00 Homelessness unspecified; Z72.89 Other problems related to lifestyle
CPT/HCPCS: 36415; 74177; 80053; 81001; 81025; 83690; 84484; 85025; 93005; 96361; 96374; 96375; 96376; 99285; J0131; J1171; J1885; J2405; J7030; Q9967